=== PATIENT | female | born 1990 | race Caucasian/White ===

== ENCOUNTER 2022-08-24 16:52 | Emergency (ER) | payer OTHER ==
[~2022-08-24] VITALS: Ht 160 cm; Wt 90.7 kg
[~2022-08-24 16:52] MED LIST: INTESTINEX1 CA1 PO
[2022-08-24] MEDS ORDERED: [UNRECOGNIZED DRUG - OTHER] MC (17:07)
[2022-08-24] MEDS ORDERED: ZOLOFT25 MG PO (17:07)
== END 2022-08-24 19:43 | disposition home or self-care (01) ==
LOC: ER 16:52
DX: K29.60 Other gastritis without bleeding (principal)

== ENCOUNTER 2023-06-13 07:37 | Day surgery (SDC) | payer OTHER ==
[~2023-06-13 07:37] MED LIST changes: +ATIVAN1 M1 PO; +ZOLOFT25 MG PO; +[UNRECOGNIZED DRUG - OTHER] MC
[2023-06-13] MEDS ORDERED: POVIDONE-IODINE 118 ML BOTT TOP ONE ×2 (11:06→12:45)
[2023-06-13] MEDS ORDERED: IBU800 MG PO (13:58)
[2023-06-13] MEDS ORDERED: NEURONTIN300 MG PO (13:58)
== END 2023-06-13 15:40 | disposition home or self-care (01) ==
LOC: CIR.AMB 07:37
PROVIDERS: ATTEND Obstetrics & Gynecology Gynecology
DX: D27.1 Benign neoplasm of left ovary (principal); Z20.822 Contact with and (suspected) exposure to COVID-19